=== PATIENT | female | born 1985 | race African-American/Black ===

== ENCOUNTER 2018-12-25 09:34 | Outpatient (CLI) | payer OTHER ==
[2018-12-25] MEDS ORDERED: GADOPENTETATE DIMEGLUMINE 5 ML VIAL IVP ONE ×2 (10:00→11:38)
[2018-12-25] MEDS ORDERED: BUFFERED LIDOCAINE 10 ML SYRINGE ONE ×2 (10:00→11:41)
[2018-12-25] MEDS ORDERED: IOTHALAMATE MEGLUMINE 50 ML VIAL ONE (10:01)
[2018-12-25] MEDS ORDERED: BUFFERED LIDOCAINE 10 ML SYRINGE IU ONE (11:38)
[2018-12-25] MEDS ORDERED: IOTHALAMATE MEGLUMINE 50 ML VIAL IVP ONE (11:38)
--- NOTE | 2018-12-25 12:16 | XRAY Report ---
Reason: PAIN IN UNSPECIFIED HIP Procedure Date: 12/25/2018 Accession Number: [id number] / [id number] Procedure: [place] - Arthrogram Needle Placement CPT Code: FULL RESULT: EXAM: RIGHT HIP ARTHROGRAPHIC INJECTION WITH FLUOROSCOPIC GUIDANCE EXAM DATE: 12/25/2018 11:05 AM. CLINICAL HISTORY: Right hip pain. COMPARISON: ARTHROGRAM 06/01/2016 1:52 PM. TECHNIQUE: The risks, benefits, and alternatives of the procedure were discussed with the patient. All questions were answered. Written and verbal consent were obtained. The hip joint was marked under fluoroscopy and prepped and draped in a sterile manner. Local anesthesia was performed with 1% lidocaine. A 22-gauge needle was then inserted into the hip joint. 15 mL of a solution containing 25% 1% lidocaine, 25% iodinated contrast, and a 1:200 dilution of gadolinium contrast in sterile saline was then injected. The needle was removed without immediate complication. Other: None. Fluoroscopy Time: 34 seconds. Number of Images: 12. FINDINGS: Bones and Joints: No fracture or subluxation. Injection: Fluoroscopic images demonstrate needle placement and contrast in the hip joint. IMPRESSION: Successful fluoroscopically guided arthrographic injection of the hip. [facility]
--- NOTE | 2018-12-26 10:05 | MRI Report ---
Reason: PAIN IN UNSPECIFIED HIP Procedure Date: 12/25/2018 Accession Number: [id number] / [id number] Procedure: MRI - Arthrogram Hip RT CPT Code: FULL RESULT: EXAM: RIGHT HIP MRI ARTHROGRAM WITH CONTRAST EXAM DATE: 12/25/2018 11:37 AM. CLINICAL HISTORY: Right hip pain. COMPARISON: Large [id number] coronal and axial MR images of the right hip were obtained during the left hip MRI exam from 06/01/2016. TECHNIQUE: Multiplanar, multisequence T1-weighted and fluid-sensitive, small [id number]-[id number] sequences of the hip and large qazta-ip-dhrr sequences of the pelvis after an arthrographic injection of dilute gadolinium, dictated under a separate exam. Other: None. FINDINGS: Bones: Mild focal juxta articular marrow edema at the sacral side of the anterior aspect of the right sacroiliac joint. Subcortical hypointense focus at the iliac side of the left sacroiliac joint which is unchanged. Mild focal marrow edema at the posterior aspect of the left acetabulum, which is new since the previous study. No acute fracture or bone lesions. Right Hip: No acetabular retroversion. Femoral head/neck offset is within normal limits. No loose bodies. The articular cartilage is intact. Small, focal, approximately 1.5 mm partial-thickness tear at the anterior aspect of the right acetabular labrum (axial oblique image 12 of series 801 and sagittal image 10 of series 701). The ligamentum teres is intact. Other Joints: The visualized lumbar spine, symphysis pubis, and contralateral hip are unremarkable. Musculature: No edema or fatty atrophy. The gluteus medius and minimus tendons are normal. The visualized hamstring tendons are normal. The ischiofemoral space is normal. Pelvic Cavity: There is an approximately 2.6 x 2.8 x 2.7 cm homogeneous simple-appearing left ovarian cyst, which is new since the previous study. Small amount of free fluid at the pelvic cul-de-sac. No lymphadenopathy. Incidentally, there is a 2.2 x 1.6 x 1.5 cm well-circumscribed T2 hyperintense and slight T1 hyperintense right paravaginal mass (previously 1.8 x 1.5 x 1.5 cm). There is an approximately 2.3 x 1.7 x 2.2 cm, well-circumscribed, T2 isointense to hypointense and T1 hyperintense left paravaginal mass (previously 1.5 x 0.9 x 1.5 cm). The left paravaginal mass is less hyperintense on the T2-weighted images in comparison to the previous study. Other: The visualized sciatic nerves are unremarkable. No bursitis. The subcutaneous tissues are unremarkable. IMPRESSION: 1. Mild focal juxta articular marrow edema at the sacral side of the anterior aspect of the right sacroiliac joint, which is new since the previous study. Persistent subcortical hypointense focus at the iliac side of the left sacroiliac joint may represent sclerosis. The findings may be arthritic. 2. Mild focal marrow edema at the posterior aspect of the left acetabulum which is new since the previous study. Differential may include a bone contusion or stress reaction. 3. Small focal partial-thickness tear at the anterior aspect of the right acetabular labrum. 4. Incidental finding of left and right paravaginal masses, which most likely represent Bartholin gland cysts. The masses have increased in size since the previous study. 5. Incidental finding of a 2.6 x 2.8 x 2.7 cm simple-appearing left ovarian cyst. Small amount of free fluid at the pelvic cul-de-sac which is most likely physiologic. [facility] MUSCULOSKELETAL RADIOLOGY SECTION
== END 2018-12-25 09:35 | disposition home or self-care (01) ==
LOC: DI 09:34
PROVIDERS: ATTEND Orthopaedic Surgery
DX: S73.191A Other sprain of right hip, initial encounter (principal); R60.0 Localized edema
CPT/HCPCS: 27093; 73722; 77002; Q9961